=== PATIENT | female | born 1955 | race Caucasian/White ===

== ENCOUNTER 2019-12-09 07:54 | Outpatient (CLI) | payer BC, SELFPAY ==
--- NOTE | ~2019-12-09 | DEXA_ITS ---
Bone Density Report Name: Supriya Hall Age: 64 Sex: Female Ethnicity: White Date of : 1955 Indication: postmenopausal; height loss; prior fracture; hysterectomy; Referring Provider: Marbella Arce Study: Bone densitometry was performed. Exam Date: December 09, 2019 Accession number: [id number] Bone Density: Region BMD T-score Z-score Classification AP Spine (L1, L4) 1.009 -0.3 1.4 Normal Femoral Neck (Left) 0.664 -1.7 -0.2 Osteopenia Total Hip (Left) 0.985 0.4 1.5 Normal Total Hip Bilateral Avg 0.947 0.1 1.2 Normal Femoral Neck (Right) 0.619 -2.1 -0.6 Osteopenia Total Hip (Right) 0.909 -0.3 0.9 Normal World Health Organization criteria for BMD impression classify patients as: Normal (T-score at or above -1.0), Osteopenia (T-score between -1.0 and -2.5), or Osteoporosis (T-score at or below -2.5). 10-year Fracture Risk(1): Major Osteoporotic Fracture 17% Hip Fracture 2.4% Reported Risk Factors: [place] (), Neck BMD=0.619, BMI=32.8, previous fracture (1) FRAX(R) Version 3.08. Fracture probability calculated for an untreated patient. Fracture probability may be lower if the patient has received treatment. Previous Exams: Region Exam Age BMD T-score BMD Change BMD Change Date g/cm2 vs Baseline vs Previous AP Spine(L1, L4) 12/09/2019 64 1.009 -0.3 -0.104(-9.3%)# -0.015(-1.5%) 09/14/2017 61 1.023 -0.1 -0.089(-8.0%)# -0.013(-1.2%) 03/22/2015 59 1.036 0.0 -0.076(-6.8%)# 0.014(1.4%)# 06/18/2012 56 1.022 -0.1 -0.090(-8.1%)# -0.090(-8.1%)# 08/13/2009 53 1.112 0.7 Total Hip(Left) 12/09/2019 64 0.985 0.4 -0.098(-9.1%)# -0.019(-1.9%) 09/14/2017 61 1.003 0.5 -0.080(-7.3%)# 0.039(4.0%)* 03/22/2015 59 0.964 0.2 -0.119(-10.9%) -0.038(-3.8%)# 06/18/2012 56 1.002 0.5 -0.081(-7.4%)# -0.081(-7.4%)# 08/13/2009 53 1.083 1.2 Total Hip(Right) 12/09/2019 64 0.909 -0.3 -0.095(-9.5%)# 0.003(0.3%) 09/14/2017 61 0.906 -0.3 -0.098(-9.8%)# -0.041(-4.3%)* 03/22/2015 59 0.947 0.0 -0.057(-5.7%)# 0.030(3.3%)# 06/18/2012 56 0.917 -0.2 -0.088(-8.7%)# -0.088(-8.7%)# 08/13/2009 53 1.005 0.5 *Denotes significance at 95% confidence level, LSC for AP Spine = 0.022 g/cm2, LSC for Total Hip = 0.027 g/cm2 Clinical Information Provided by Patient: Has had a low trauma fracture Has used the following medications: Calcium Has the following medical conditions: Hysterectomy Patient maximum height was 67.5 M
--- NOTE | ~2019-12-09 | MM_ITS ---
EXAMINATION: MM screening [facility] BI w mary kay HISTORY: Screening mammogram TECHNIQUE: Craniocaudal and mediolateral oblique 3-D tomosynthesis images were obtained and synthetic 2-D images were generated. CAD analysis was submitted and interpreted. COMPARISON: 11/11/2018, 09/14/2017, 04/03/2016 bilateral digital screening mammogram examinations BREAST PARENCHYMAL COMPOSITION: The breasts are almost entirely fatty. FINDINGS: There is no evidence of suspicious mass, calcification, or architectural distortion to sugg est malignancy in either breast. There has been no suspicious interval change. IMPRESSION: 1. No mammographic evidence of malignancy. 2. Recommend routine screening mammography in one year. BI-RADS Category 1: Negative Reviewed, dictated and finalized at location A. NICAL SALES ADVISOR
== END 2019-12-09 07:55 | disposition home or self-care (01) ==
LOC: ANHIMG 07:57
PROVIDERS: Visit Provider Advanced Practice Midwife
DX: Z12.31 Encounter for screening mammogram for malignant neoplasm of breast (principal); Z13.820 Encounter for screening for osteoporosis; M85.852 Other specified disorders of bone density and structure, left thigh; M85.851 Other specified disorders of bone density and structure, right thigh
CPT/HCPCS: 77063; 77067; 77080

== ENCOUNTER → 2020-11-27 12:21 | Outpatient (CLI) | payer BC, SELFPAY ==
--- NOTE | ~2020-11-27 | XR_ITS ---
XR lumbar spine min 4V DATE: 11/27/2020 12:50 INDICATION: Acute right low back pain, right sciatica TECHNIQUE: AP, bilateral oblique, lateral and coned lateral lumbosacral views COMPARISON: 03/13/2017 lumbar spine FINDINGS: Diffuse osteopenia. There is moderate dextro scoliosis of the lower thoracic and lumbar spi ne. No fracture or bone destruction is evident. There is prominent degenerative disc disease throughout the lumbar and lumbosacral spine, particularl y severe at L5-S1. There is associated mild retrolisthesis at L2-3 and L3-4. No fracture or bone destruction. The lumbar pedicles are intact. The sacroiliac joints appear normal. Prominent amount of fecal material in the colon. Status post cholecystectomy. IMPRESSION: Moderate rotatory dextroscoliosis Degenerative disc disease throughout the lumbar spine, particularly severe at L5-S1 Reviewed, dictated and finalized at location A. ER MINER IMPRESSION: Moderate rotatory dextroscoliosis Degenerative disc disease throughout the lumbar spine, particularly severe at L 5-S1
== END ==
PROVIDERS: PCP Family Medicine; Visit Provider Family Medicine
DX: M54.41 Lumbago with sciatica, right side (principal); M41.86 Other forms of scoliosis, lumbar region; M51.36 Other intervertebral disc degeneration, lumbar region
CPT/HCPCS: 72110

== ENCOUNTER 2020-12-20 08:30 | Outpatient (CLI) | payer BC, SELFPAY ==
--- NOTE | ~2020-12-20 | MM_ITS ---
EXAMINATION: MM screening [facility] BI w mary kay HISTORY: Screening mammogram TECHNIQUE: Craniocaudal and mediolateral oblique 3-D tomosynthesis images were obtained and synthetic 2-D images were generated. CAD analysis was submitted and interpreted. COMPARISON: 12/09/2019, 11/11/2018, 09/14/2017 bilateral digital screening mammogram examinations BREAST PARENCHYMAL COMPOSITION: There are scattered areas of fibroglandular density. FINDINGS: There is no evidence of suspicious mass, calcification, or architectural distortion to sugg est malignancy in either breast. There has been no suspicious interval change. IMPRESSION: 1. No mammographic evidence of malignancy. 2. Recommend routine screening mammography in one year. BI-RADS Category 1: Negative Reviewed, dictated and finalized at location A. NUATOR
== END 2020-12-20 08:31 | disposition home or self-care (01) ==
PROVIDERS: PCP Family Medicine; Visit Provider Nurse Practitioner Obstetrics & Gynecology
DX: Z12.31 Encounter for screening mammogram for malignant neoplasm of breast (principal)
CPT/HCPCS: 77063; 77067

== ENCOUNTER 2022-06-13 14:40 | Outpatient (CLI) | payer BC, SELFPAY ==
--- NOTE | ~2022-06-13 | MM_ITS ---
EXAMINATION: MM screening [facility] BI w mary kay HISTORY: Screening mammogram TECHNIQUE: Craniocaudal and mediolateral oblique 3-D tomosynthesis images were obtained and synthetic 2-D images were generated. CAD analysis was submitted and interpreted. COMPARISON: August 19, 2021, December 09, 2019, November 11, 2018 bilateral screening mammogram exami nations BREAST PARENCHYMAL COMPOSITION: There are scattered areas of fibroglandular density. FINDINGS: There is no evidence of suspicious mass, calcification, or architectural distortion to sugg est malignancy in either breast. There has been no suspicious interval change. IMPRESSION: 1. No mammographic evidence of malignancy. 2. Recommend routine screening mammography in one year. BI-RADS Category 1: Negative Reviewed, dictated and finalized at location A.
== END 2022-06-13 14:41 | disposition home or self-care (01) ==
LOC: ANHIMG 14:46
DX: Z12.31 Encounter for screening mammogram for malignant neoplasm of breast (principal)
CPT/HCPCS: 77063; 77067

== ENCOUNTER 2022-07-04 10:44 | Observation (INO) | payer BC, SELFPAY ==
[2022-07-04] VITALS (20 sets, daily range): BP systolic 104–154; BP diastolic 59–83; PULSE 67–115; RESP 12–22; TEMP 36.4–38.4; O2SAT 92–99; BMI 29.9
--- NOTE | 2022-07-04 11:01 | PC.NURSE ---
Patient report given to ROBERTO Lim. All questions answered and care of patient transferred.
--- NOTE | 2022-07-04 11:03 | ED.GENADULT ---
HPI - General Adult General Chief complaint: Nausea/Vomiting/Diarrhea Stated complaint: back pain, n/v Time Seen by Provider: 07/04/22 10:45 History of Present Illness HPI narrative: 66-year-old female presenting the emergency department for evaluation of worsening symptoms of a urinary tract infection. Patient states about 4 days ago she began having burning with urination and lower abdominal cramping. Patient did have follow-up with her primary care physician approximately 2 days ago and was started on an antibiotic that she is unsure of. Patient states she did take that twice a day over the last 2 days. Patient states yesterday she began developing some shaking and worsening weakness. Last night she felt she began to improve and today she had onset of nausea and vomiting. Patient states he does still have some abdominal cramping. Patient states she has had previous urinary tract infections. Patient reports a prior surgical history of a . Related Data Home Medications Medication Instructions Recorded Confirmed amlodipine 10 mg tablet 10 mg PO DAILY 07/04/22 07/04/22 calcium carbonate 333 mg-magnesium 2 tablet PO DAILY 07/04/22 07/04/22 oxide 133 mg-zinc sulf 5 mg tablet celecoxib 200 mg capsule 200 mg PO DAILY 07/04/22 07/04/22 esomeprazole magnesium 20 mg 20 mg PO DAILY 07/04/22 07/04/22 capsule,delayed release (Nexium) fexofenadine 60 mg tablet (Anna 60 mg PO DAILY 07/04/22 07/04/22 Allergy) gabapentin 300 mg capsule 300 mg PO DAILY 07/04/22 07/04/22 hydrochlorothiazide 12.5 mg tablet 12.5 mg PO DAILY 07/04/22 Allergies Allergy/AdvReac Type Severity Reaction Status Date / Time No Known Allergies Allergy Verified 07/04/22 15:11 Review of Systems Review of Systems: CONSTITUTIONAL: Denies fever, chills, or sweats. EYES: Denies visual changes, redness, or discharge. ENT: Denies rhinorrhea, congestion, sore throat, or otalgia. CARDIOVASCULAR: Denies chest pain, palpitations, or edema. RESPIRATORY: Denies cough or dyspnea. GASTROINTESTINAL: Abdominal pain with associated nausea vomiting diarrhea GENITOURINARY: Burning with urination SKIN: Denies rash or itching. MUSCULOSKELETAL: Denies back pain, joint pain, or myalgia. NEUROLOGIC: Denies headache, numbness, or weakness. PSYCHIATRIC: Denies anxiety or depression. [facility] Family History Family History Father Family history of malignant neoplasm Family history of heart disease in male family member before age 55 Mother Family history of lung cancer Family history of heart disease in male family member before age 55 Grandparent Family history of malignant neoplasm of ovary Family history of heart disease in male family member before age 55 Sibling Family history of heart disease in male family member before age 55 Other Diabetes mellitus Family history of arthritis Family history of malignant neoplasm of breast Hypertension Social History Social History Smoking status: Never smoker Alcohol intake: unknown Substance use: never Substance use type: does not use Spiritual care concerns: No Exam Narrative: APPEARANCE: Well appearing, no pain, no distress, well-nourished. HEAD: normocephalic, atraumatic. EYES: PERRLA/EOMI, conjunctivae clear. NOSE: Normal no drainage THROAT: Pharynx clear, no exudate. NECK: Supple. No adenopathy, no masses. RESPIRATORY: Airway patent, respirations nonlabored. Clear to auscultation bilaterally, no rales, rhonchi, wheezing. CARDIOVASCULAR: Regular rate and rhythm without murmurs rubs or gallops. ABDOMINAL: Soft, suprapubic and epigastric tenderness to palpation. CVA tenderness to palpation MUSCULOSKELETAL: Moves all extremities. Strength/ROM intact, No edema, No calf tenderness. NEURO: Alert. Cranial nerves II through XII intact. Grossly intact. SKIN: Warm, dry. Normal Color Course Course Emergency Course: Patient had been s
[2022-07-04] MEDS: ONDANSETRON INJ 4 MG/2 ML VIAL IV PUSH ×2 (11:15→20:36)
[2022-07-04] MEDS: SODIUM CHLORIDE 0.9% IV 1,000 ML 999 ML IV CONT (11:16)
[2022-07-04 12:00] LABS: Hematocrit 44.1 % (37.0-47.0); Hemoglobin 14.4 g/dL (12.0-15.0); Mean Corpuscular HGB Conc 32.7 g/dl (32-36); Mean Corpuscular Volume 88.9 fl (80-100); Mean Platelet Volume 10.5 fl (7.4-10.4); Platelet Count Result 225 k/mm3 (150-375); Red Blood Count 4.96 M/mm3 (4.2-5.4); Red Cell Distribution Width 13.4 % (11.5-14.5); White Blood Count 10.2 K/mm3 (4.5-10.0)
[2022-07-04 12:02] LABS: Alanine Aminotransferase 20 U/L (6-35); Albumin Level 4.4 g/dL (3.5-5.1); Alkaline Phosphatase 71 U/L (38-126); Anion Gap 13 mmol/L (8-16); Aspartate Amino Transferase 25 U/L (14-36); Bilirubin,Total 0.9 mg/dL (0.2-1.3); Blood Urea Nitrogen 12 mg/dL (7-17); Calcium 8.7 mg/dL (8.4-10.2); Carbon Dioxide 27 mmol/L (22-30); Chloride 100 mmol/L (98-107); Estimated CRCL calculation 68 ml/min; Estimated Glomerular Filt Rate > 60; Glucose 113 mg/dL (65-110); Lipase 54 U/L (23-300); Potassium 3.5 mmol/L (3.4-5.0); Sodium 140 mmol/L (137-145)
--- NOTE | 2022-07-04 12:26 | PC.NURSE ---
[address] Fountain office. Pt dx with UTI 2 days ago, urine culture came back resistant to nitrofurontin/ampacillin. Able to switch to Cipro, Bactrim, Ceph, etc. Notified Dr. Powell of findings.
[2022-07-04] MEDS: MORPHINE SULFATE (*CRX) 4 MG/ML INJ IV PUSH (12:46)
[2022-07-04 12:51] LABS: Atypical Lymphocytes Present; Band Neutrophils Percent 11 % (0-6); Eosinophils Percent Manual 2 % (0-4); Lymphocytes Absolute Manual 0.61 K/mm3 (1.1-4.5); Metamyelocytes Percent 1 %; Monocytes Percent Manual 4 % (3-9); Neutrophils Absolute Manual 8.87 K/mm3 (1.7-7.2); Neutrophils Percent Manual 76 % (46-73); Total Cells Counted 100
[2022-07-04 12:56] LABS: Platelet Estimate Adequate (Adequate)
[2022-07-04 12:58] LABS: Bacteria Urine 1+ /hpf; Mucus Urine Rare /lpf; Squamous Epithelial Cell Urine Occasional /hpf (Few); WBC Urine 51-75 /hpf
[2022-07-04 13:01] LABS: Appearance Urine Clear (Clear); Bilirubin Urine 1+ (Negative); Color Urine Yellow (Yellow); Glucose Urine UA Negative (Negative); Ketones Urine 2+ mg/dL (Negative); Leukocyte Esterase Ur 1+ LEU/UL (Negative); Nitrate Urine Negative (Negative); Protein Urine Trace mg/dL (Negative)
[2022-07-04 13:05] LABS: Add Urine Microscopic? YES; Blood Urine Trace (Negative)
--- NOTE | 2022-07-04 14:00 | PM.IMHP ---
H&P: HPI History of Present Illness Date/Time: 07/04/22 14:00 Chief Complaint: Nausea and vomiting. Narrative: This is a 66-year-old female with hypertension who presented to the emergency department via EMS from home for evaluation of nausea and. Earlier this week she began having urinary symptoms including dysuria, frequency, and hesitancy. She was seen by her primary care physician 2 days ago and she was started on nitrofurantoin for a urinary tract infection. She has been taking the antibiotic but unfortunately she continues to feel worse. Yesterday she developed nausea, vomiting, and diarrhea and she reports having 1 bouts of emesis and loose stools overnight. She continues to have dysuria, urinary frequency and this morning she was very weak with lightheadedness and dizziness thus she came in for evaluation. Temperature was 101.1? F on arrival and she does indicate that she has been having rigors at home. Vital signs were otherwise stable. While in the ED, the patient's primary care doctor was contacted and nursing staff indicate that the antibiotic she is currently taking for the UTI is apparently resistant to whatever was growing on her urine culture though they did not give any further information. She is being admitted in this setting for IV antibiotics. At the time of my evaluation she feels better after receiving IV fluid rehydration and she has no current complaints. Review of Systems Review of Systems: Twelve systems were reviewed. She has felt lightheaded and dizzy since this morning. No falls or syncope. No sinus congestion, sore throat, or cough. No sick contacts. She has had some cramping in her abdomen, mainly on the right side into the right mid and lower back. No history of kidney stones. No hematuria. Diarrhea has resolved. Except as documented, all other systems were reviewed and are negative. [facility] Past Medical History Medical History (Updated 07/04/22 @ 20:51 by Liyah Rendon PA-C) Hypercholesterolemia Hypertension Surgical History Surgical History (Updated 07/04/22 @ 20:47 by Liyah Rendon PA-C) History of bunionectomy of both great toes History of section History of cholecystectomy Hx of excision of epidermal inclusion cyst Family History Family History Father Family history of malignant neoplasm Family history of heart disease in male family member before age 55 Mother Family history of lung cancer Family history of heart disease in male family member before age 55 Grandparent Family history of malignant neoplasm of ovary Family history of heart disease in male family member before age 55 Sibling Family history of heart disease in male family member before age 55 Other Diabetes mellitus Family history of arthritis Family history of malignant neoplasm of breast Hypertension Social History Social History (Updated 07/04/22 @ 20:49 by Liyah Rendon PA-C) Social History: Surrogate medical decision maker: Homer Hall, spouse. Code status: Full code. Smoking status: Never smoker Alcohol intake: unknown Substance use: never Substance use type: does not use Additional living arrangements comments: Lives in [place] with spouse. Additional occupation/education comments: Retired. Spiritual care concerns: No Meds Home Medications and Allergies Home Medications Medication Instructions Recorded Confirmed Type amlodipine 10 mg tablet 10 mg PO DAILY 07/04/22 07/04/22 History calcium carbonate 333 mg-magnesium 2 tablet PO DAILY 07/04/22 07/04/22 History oxide 133 mg-zinc sulf 5 mg tablet celecoxib 200 mg capsule 200 mg PO DAILY 07/04/22 07/04/22 History esomeprazole magnesium 20 mg 20 mg PO DAILY 07/04/22 07/04/22 History capsule,delayed release (Nexium) fexofenadine 60 mg tablet (Anna 60 mg PO DAILY 07/04/22 07/04/22 History Allergy) gabapentin 300 mg capsu
--- NOTE | 2022-07-04 14:40 | ADMGEN ---
This patient, Supriya Hall, was admitted to 2 Medical Room 259-01. Patient/family oriented to hospital policies and general routines including ID bracelet, bed and alarms, visiting hours, pain management, procedures, bathroom and other care routines, personal items, smoking policy, room service/diet, and visiting hours. Information on how to activate the Rapid Response Team has been discussed. Patient/Family are encouraged to report perceived risks to care and to ask questions if they do not understand what they are told or what they should do.
[2022-07-04] MEDS: SODIUM CHLORIDE 0.9% IV 1,000 ML 75 ML IV CONT (15:02)
[2022-07-04] MEDS: ACETAMINOPHEN 325 MG TABLET 650 MG PO (21:38)
[2022-07-05 04:06] VITALS: BP 105/51; PULSE 71; RESP 16; TEMP 36.4; O2SAT 98
[2022-07-05] MEDS: SODIUM CHLORIDE 0.9% IV 1,000 ML 75 ML IV CONT ×2 (04:07→18:13)
[2022-07-05 05:50] LABS: Hematocrit 38.9 % (37.0-47.0); Hemoglobin 12.6 g/dL (12.0-15.0); Mean Corpuscular HGB Conc 32.4 g/dl (32-36); Mean Corpuscular Hemoglobin 28.9 pg (26-34); Mean Corpuscular Volume 89.2 fl (80-100); Mean Platelet Volume 9.8 fl (7.4-10.4); Platelet Count Result 189 k/mm3 (150-375); Red Blood Count 4.36 M/mm3 (4.2-5.4); Red Cell Distribution Width 13.2 % (11.5-14.5); White Blood Count 4.7 K/mm3 (4.5-10.0)
[2022-07-05 06:05] LABS: Alanine Aminotransferase 16 U/L (6-35); Albumin Level 3.4 g/dL (3.5-5.1); Alkaline Phosphatase 45 U/L (38-126); Anion Gap 9 mmol/L (8-16); Aspartate Amino Transferase 22 U/L (14-36); Bilirubin,Total 0.6 mg/dL (0.2-1.3); Blood Urea Nitrogen 8 mg/dL (7-17); Calcium 7.3 mg/dL (8.4-10.2); Carbon Dioxide 26 mmol/L (22-30); Chloride 105 mmol/L (98-107); Estimated CRCL calculation 77 ml/min; Estimated Glomerular Filt Rate > 60; Glucose 96 mg/dL (65-110); Magnesium 1.7 mg/dL (1.6-2.3); Potassium 3.7 mmol/L (3.4-5.0); Sodium 140 mmol/L (137-145)
[2022-07-05 08:31] VITALS: BP 117/58; PULSE 97; RESP 16; O2SAT 67
[2022-07-05] MEDS: LORATADINE 10 MG TABLET PO (08:35)
[2022-07-05] MEDS: GABAPENTIN 300 MG CAPSULE PO (08:35)
[2022-07-05] MEDS: amLODIPine BESYLATE 5 MG TABLET 10 MG PO (08:35)
[2022-07-05] MEDS: CELECOXIB 200 MG CAPSULE PO (08:35)
[2022-07-05] MEDS: PANTOPRAZOLE 40 MG TABLET PO (08:35)
--- NOTE | 2022-07-05 11:07 | PC.NURSE ---
Spoke with Sandra Cadena about patient refusing lovenox injection this morning.
--- NOTE | 2022-07-05 14:48 | PM.IMPN ---
Progress Note: A&P Assessment and Plan (1) Urinary tract infection: Code(s): N39.0 - Urinary tract infection, site not specified Status: Acute Assessment and Plan: - Continue Rocephin - Urine culture pending. - Continue IVF. - Blood cultures preliminarily negative (2) Nausea & vomiting: Code(s): R11.2 - Nausea with vomiting, unspecified Status: Acute Assessment and Plan: - Increase diet to regular. - No longer symptomatic. - Hemodynamically stable. - PRN Antiemetics. (3) Dehydration: Code(s): E86.0 - Dehydration Status: Acute Assessment and Plan: - Increase diet to regular. - No longer symptomatic. - Hemodynamically stable (4) Hypertension: Code(s): I10 - Essential (primary) hypertension Status: Acute Assessment and Plan: - Stable at 105/51. - Continue BP meds. - Monitor VS. Time Spent With Patient Time with patient: 15 - 25 minutes Subjective Date/time seen: 07/05/22 1200 Pt. was examined today and she reports that her fever broke in the middle of the night and she began to sweat. She has continued to get Rocephin and she has no further N/V/D, and no abdominal cramping. She has remained fever free and without new symptoms. No CP, dyspnea, headache, lightheadedness, or dizziness. Preliminary Blood cultures have been negative so far, and the urine culture is still pending. No CP, Dyspnea, headache, lightheadedness or dizziness. Review of Systems Review of Systems: All systems reviewed & are unremarkable except as noted in HPI and below Exam Const: General: comfortable HENMT: General nose exam: Normal nares present Mouth: Yes moist mucous membranes Eyes: General: appearance normal, both eyes and all related structures Sclera: sclerae normal Pupils: Equal, round and reactive pupils present EOM: EOMs intact bilaterally Neck: Neck: supple and no JVD Resp: Effort & Inspection: normal respiratory effort Auscultation: clear to auscultation bilaterally Cardio: Rate: regular rate Rhythm: regular rhythm Heart sounds: no gallops, no murmurs and no rubs GI: Inspection: non-distended GI Palp: Yes Soft to palpation, No Tenderness to palpation present (GI) and No Guarding due to palpation present (GI) Auscultation: normal bowel sounds Skin: General skin exam: normal color and no rashes or lesions noted Neuro: General: gait normal Speech: normal speech Extrem: General: normal to inspection, no edema and no pedal edema Psych: Mental Status: mental status grossly normal Affect: normal affect Objective Data Vital Signs Vital Signs: Vital Signs - 24 hr 07/04/22 16:39 07/04/22 19:40 07/04/22 20:00 Temperature 97.8 F Pulse Rate 67 Respiratory Rate 18 Blood Pressure 111/64 Pulse Oximetry 98 96 Oxygen Delivery Room Air Room Air 07/05/22 04:06 07/05/22 08:31 07/05/22 08:40 Temperature 97.6 F Pulse Rate 71 97 Respiratory Rate 16 16 Blood Pressure 105/51 L 117/58 L Pulse Oximetry 98 67 L Oxygen Delivery Room Air Intake/Output Intake/Output: Intake & Output 07/02/22 07/03/22 07/04/22 07/05/22 23:59 23:59 23:59 23:59 Intake Total 1690 1390 Output Total 300 1200 Balance 1390 190 Meds/Results Medications: Active Medications Generic Name Dose Route Start Last Admin Trade Name Freq PRN Reason Stop Dose Admin Acetaminophen 650 mg 07/04/22 21:03 07/04/22 21:38 Acetaminophen 325 Mg Tablet PO 650 mg Q6H PRN Administration Mild Pain (1-3) or Fever Amlodipine Besylate 10 mg 07/05/22 09:00 07/05/22 08:35 Amlodipine Besylate 5 Mg Tablet PO 10 mg DAILY LONG Administration Celecoxib 200 mg 07/05/22 08:00 07/05/22 08:35 Celecoxib 200 Mg Capsule PO 200 mg DAILY@0800 LONG Administration Enoxaparin Sodium 40 mg 07/05/22 09:00 07/05/22 11:04 Enoxaparin 40 Mg/0.4 Ml Syringe SUB-Q Not Given DAILY LONG Gabapentin 300 mg 07/05/22 09:00 09
[2022-07-05 15:13] VITALS: BP 110/58; PULSE 67; RESP 18; TEMP 36.4; O2SAT 96
[2022-07-05] MEDS: ACETAMINOPHEN 325 MG TABLET 650 MG PO (18:17)
[2022-07-05 21:35] VITALS: BP 113/63; PULSE 70; RESP 16; TEMP 36.7; O2SAT 98
[2022-07-06] MEDS: SODIUM CHLORIDE 0.9% IV 1,000 ML 100 ML IV CONT (05:40)
[2022-07-06 06:17] VITALS: BP 120/65; PULSE 64; RESP 18; TEMP 36.6; O2SAT 95
--- NOTE | 2022-07-06 07:36 | PM.DS ---
DS: Admitting Diagnosis Discharge Date 07/06/2022 Admitting Diagnosis UTI, Dehydration DS: Discharge Diagnosis Discharge Diagnosis (1) Urinary tract infection: Code(s): N39.0 - Urinary tract infection, site not specified Status: Acute Assessment and Plan: - Continue Rocephin - Urine culture negative - Continue IVF. - Blood cultures negative. - Pt. now asymptomatic. Will discharge today with Cefdinir for 7 days to complete a full course of abx for 10 days. - Advised to follow up with PCP. (2) Nausea & vomiting: Code(s): R11.2 - Nausea with vomiting, unspecified Status: Resolved Assessment and Plan: - Increase diet to regular. Tolerating well. - No longer symptomatic. - Hemodynamically stable. - PRN Antiemetics. (3) Dehydration: Code(s): E86.0 - Dehydration Status: Resolved Assessment and Plan: - Increase diet to regular. - No longer symptomatic. - Hemodynamically stable (4) Hypertension: Code(s): I10 - Essential (primary) hypertension Status: Chronic Assessment and Plan: - Stable at 105/51. - Continue BP meds. - Monitor VS. DS: Summary Hospital Course Reason for hospitalization: N/V in setting of UTI with incorrect medication dosing. Hospital Course: This pleasant, 66 year old female patient with significant PMH of HTN, and HLD presented to the ER on 07/04/22. She had complained of urinary burning, urgency and frequency this past week and had been prescribed abx of Macrobid from her PCP. She was then contacted and told that the Macrobid she was prescribed would not cover her infection. The pt at the same time had developed N/V. She was therefore referred to the ER to make sure she did not have a worsening of infection or a spread. Pt. was treated with Rocephin in the ER and was admitted to the hospital for UTI and for dehydration. She has been receiving Rocephin here in the ER and is now asymptomatic and has been eating a normal diet. Her urine and blood cultures are negative for any growth and the pt. feels exquisitely better. She is safe for discharge at this time with an additional 7 days of cefdinir to complete the abx course. Status at Discharge Functional status at discharge: independent ambulation Overall status at discharge: patient is back to baseline Time Spent with Patient Time attestation: Total time spent providing and/or coordinating discharge services: Time spent: Greater than 30 minutes Exam Const: General: comfortable HENMT: General nose exam: Normal nares present Mouth: Yes moist mucous membranes Eyes: General: appearance normal, both eyes and all related structures Sclera: sclerae normal Pupils: Equal, round and reactive pupils present EOM: EOMs intact bilaterally Neck: Neck: supple and no JVD Resp: Effort & Inspection: normal respiratory effort Auscultation: clear to auscultation bilaterally Cardio: Rate: regular rate Rhythm: regular rhythm Heart sounds: no gallops, no murmurs and no rubs GI: Inspection: non-distended Auscultation: normal bowel sounds Skin: General skin exam: normal color and no rashes or lesions noted Neuro: General: gait normal Cranial nerves: Yes Equal, round and reactive pupils present Speech: normal speech Extrem: General: normal to inspection, no edema and no pedal edema Psych: Mental Status: mental status grossly normal Affect: normal affect DS: Data Data Completed and Pending Labs on day of discharge: Preliminary micro results at discharge 07/04/22 21:13 Blood Culture - Preliminary Blood 07/04/22 21:14 Blood Culture - Preliminary Blood Discharge Plan Discharge Attending physician on discharge: Alejandra Cadena Discharging Clinician: Alejandra Cadena Anticipated Discharge Date/Time: 07/06/22 07:45 Patient Disposition: Home, Self-Care Activity: as tolerated Diet: regular Discharge Instructions: Supriya, thank you for allowing us
[2022-07-06 08:16] VITALS: BP 131/71; PULSE 72; RESP 16; O2SAT 97
[2022-07-06] MEDS: amLODIPine BESYLATE 5 MG TABLET 10 MG PO (08:18)
[2022-07-06] MEDS: PANTOPRAZOLE 40 MG TABLET PO (08:18)
[2022-07-06] MEDS: LORATADINE 10 MG TABLET PO (08:18)
[2022-07-06] MEDS: CELECOXIB 200 MG CAPSULE PO (08:18)
[2022-07-06] MEDS: GABAPENTIN 300 MG CAPSULE PO (08:18)
== END 2022-07-06 10:05 | disposition home or self-care (01) ==
LOC: ANHED 13:21 → ANH2MED 13:44
PROVIDERS: Physician Assistant; Admitting Provider Chiropractor; Emergency Provider Emergency Medicine; Visit Provider Nurse Practitioner Adult Health
DX: N39.0 Urinary tract infection, site not specified (principal); E86.0 Dehydration; I10 Essential (primary) hypertension; R19.7 Diarrhea, unspecified; E78.5 Hyperlipidemia, unspecified; R00.0 Tachycardia, unspecified; Z79.1 Long term (current) use of non-steroidal anti-inflammatories (NSAID); Z79.899 Other long term (current) drug therapy
CPT/HCPCS: 36415; 80053; 81001; 83690; 83735; 85025; 85027; 87040; 87086; 96361; 96365; 96375; 96376; 99285; A9270; G0378; J0131; J0696; J2270; J2405; J7030

== ENCOUNTER 2023-09-09 15:09 | Outpatient (CLI) | payer BC, SELFPAY ==
--- NOTE | ~2023-09-09 | MM_ITS ---
EXAMINATION: MM screening [facility] BI w mary kay HISTORY: Screening mammogram TECHNIQUE: Craniocaudal and mediolateral oblique 3-D tomosynthesis images were obtained and synthetic 2-D images were generated. CAD analysis was submitted and interpreted. COMPARISON: 06/13/2022, 12/20/2020, 12/09/2019 BREAST PARENCHYMAL COMPOSITION: There are scattered areas of fibroglandular density. FINDINGS: No suspicious mass, calcification, or architectural distortion are identified in either danette ast to suggest malignancy. There has been no suspicious interval change. IMPRESSION: 1. No mammographic evidence of malignancy. 2. Recommend routine screening mammography in one year. BI-RADS Category 1: Negative Reviewed, dictated and finalized at location A. ER EXTRUSION MACHINE OPERATOR
== END 2023-09-09 15:10 | disposition home or self-care (01) ==
LOC: ANHIMG 15:12
DX: Z12.31 Encounter for screening mammogram for malignant neoplasm of breast (principal)
CPT/HCPCS: 77063; 77067

== ENCOUNTER 2024-08-25 08:54 | Outpatient (CLI) | payer BC, SELFPAY ==
--- NOTE | ~2024-08-25 | CT_ITS ---
EXAMINATION: CT thoracic lumbar wo con DATE: 08/25/2024 09:25 INDICATION: Low back pain. Mid back pain. TECHNIQUE: Computed tomography (CT) of the thoracic and lumbar spine was performed without intravenou s contrast. Automated exposure control and iterative reconstruction technique were employed. The dose -length product was 1324.66 mGy-cm. COMPARISON: None FINDINGS: CT THORACIC SPINE: Calcified right hilar lymph nodes are consistent with old edematous disease. There is a 6 mm nodule in right lung lower lobe. There is 19 degrees levoscoliosis of lower thoracic spine . There is mild chronic anterior wedging of T11 vertebral body. There is decreased disc height at mos t levels, severe from T3-T4 through T10-T11. There is multilevel facet joint osteoarthritis, severe o n the right at a few levels. There is multilevel mild neural foraminal stenosis bilaterally. There is mild central canal stenosis of the distalmost from T5-T6 through T12-L1. CT LUMBAR SPINE: There is 22 degrees dextroscoliosis of lumbar spine. Vertebral body heights are norm al. There is severely decreased disc height from L1-L2 through L5-S1. The following disc levels are s pecifically discussed: L1-L2: The disc is bulging. There is severe bilateral facet joint osteoarthritis. There is mild right and moderate left neural foraminal stenosis. There is mild central canal stenosis. L2-L3: The disc is bulging. There is severe bilateral facet joint osteoarthritis. There is moderate b ilateral neural foraminal stenosis. There is mild central canal stenosis. L3-L4: The disc is bulging. There is severe bilateral facet joint osteoarthritis. There is moderate b ilateral neural foraminal stenosis. There is mild central canal stenosis. L4-L5: The disc is bulging. There is severe bilateral facet joint osteoarthritis. There is moderate b ilateral neural foraminal stenosis. There is mild central canal stenosis. L5-S1: The disc is bulging. There is severe bilateral facet joint osteoarthritis. There is moderate b ilateral neural foraminal stenosis. There is mild central canal stenosis. IMPRESSION: 1. Severe thoracic and lumbar spondylosis. 2. Scoliosis. 3. 6 mm right lower lobe pulmonary nodule, probably benign. Consider noncontrast low-dose chest CT in 6-12 months. Reviewed, dictated and finalized at location B. IMPRESSION: 1. Severe thoracic and lumbar spondylosis. 2. Scoliosis. 3. 6 mm right lower lobe pulmonary nodule, probably benign. Consider noncontras t low-dose chest CT in 6-12 months.
== END 2024-08-25 08:55 | disposition home or self-care (01) ==
DX: M47.816 Spondylosis without myelopathy or radiculopathy, lumbar region (principal); M47.814 Spondylosis without myelopathy or radiculopathy, thoracic region; M41.9 Scoliosis, unspecified; R91.1 Solitary pulmonary nodule; M51.16 Intervertebral disc disorders with radiculopathy, lumbar region
CPT/HCPCS: 72128; 72131